=== PATIENT | male | born 1985 | race Caucasian/White ===

== ENCOUNTER 2019-11-28 16:12 | Emergency (ER) | payer MEDICAID, SELFPAY ==
[~2019-11-28] VITALS: Ht 188 cm; Wt 79.5 kg
[~2019-11-28 16:12] MED LIST: ALBU8HFA4 IH; BUPR-93 PO; BUSP15 PO; IBUP-2077 PO; MIRT45TA PO; QUET200T PO
[2019-11-28 16:25] VITALS: BP 122/63
[2019-11-28] MEDS ORDERED: GABA-529 PO (16:30)
[2019-11-28] MEDS ORDERED: LEVE250T PO (16:30)
[2019-11-28] MEDS ORDERED: GABAPENTIN 100 MG CAPSULE PO ONE (17:15)
[2019-11-28] MEDS ORDERED: LevETIRAcetam 500 MG TABLET PO ONE (17:15)
[2019-11-28] MEDS ORDERED: ACETAMINOPHEN 500 MG TABLET PO ONE (17:15)
[2019-11-28] MEDS ORDERED: ONDANSETRON HCL 4 MG TABLET PO ONE (17:15)
== END 2019-11-28 17:30 | disposition left against medical advice (07) ==
LOC: EMS 16:12
DX: G40.909 Epilepsy, unspecified, not intractable, without status epilepticus (principal); J45.909 Unspecified asthma, uncomplicated; F31.9 Bipolar disorder, unspecified; F17.210 Nicotine dependence, cigarettes, uncomplicated; F11.90 Opioid use, unspecified, uncomplicated; Z59.0 Homelessness; Z76.5 Malingerer [conscious simulation]; Z79.899 Other long term (current) drug therapy
CPT/HCPCS: 82948; 93005